=== PATIENT | female | born 1940 | race Caucasian/White ===

== ENCOUNTER 2024-08-19 10:38 | Emergency (ER) | payer MEDICARE, OTHER, SELFPAY ==
--- NOTE | ~2024-08-19 | CT_ITS ---
EXAMINATION: CT facial bones wo con DATE: 08/19/2024 12:34 INDICATION: Right head injury. TECHNIQUE: Computed tomography (CT) of the facial bones and maxillofacial region was performed withou t intravenous contrast. Automated exposure control and iterative reconstruction technique were employ ed. The dose-length product was 307.69 mGy-cm. COMPARISON: None. FINDINGS: There are likely changes of ocular lens replacement surgeries. There is rightward deviation of the nasal septum. No fracture. The paranasal sinuses are clear. There is a trace left mastoid eff usion. There is severe cervical spondylosis. IMPRESSION: 1. No fracture. Reviewed, dictated and finalized at location A. IMPRESSION: 1. No fracture.
--- NOTE | ~2024-08-19 | CT_ITS ---
EXAMINATION: CT brain wo con DATE: 08/19/2024 12:33 INDICATION: Head injury. TECHNIQUE: Computed tomography (CT) of the head was performed without intravenous contrast. The mA wa s adjusted according to patient size. Iterative reconstruction technique was employed. The dose-lengt h product was 605.33 mGy-cm. COMPARISON: None FINDINGS: There are scattered areas of low attenuation in the cerebral white matter. There is no intr acranial hemorrhage, acute infarction, or abnormal intracranial mass lesion. The ventricles are william l in size. There are likely changes of ocular lens replacement surgeries. The paranasal sinuses are c lear. There is a trace left mastoid effusion. IMPRESSION: 1. Moderate nonspecific cerebral white matter disease, which likely represents chronic small vessel i schemic disease. Reviewed, dictated and finalized at location A. IMPRESSION: 1. Moderate nonspecific cerebral white matter disease, which likely represents chronic small vessel ischemic disease.
[2024-08-19 10:45] VITALS: BP 138/78; PULSE 80; RESP 16; TEMP 36.4; O2SAT 98
--- NOTE | 2024-08-19 11:11 | ED.GENADULT ---
HPI - General Adult General Chief complaint: Wound/Laceration Stated complaint: FALL Time Seen by Provider: 08/19/24 10:53 Source: patient Mode of arrival: ambulatory Limitations: no limitations History of Present Illness HPI narrative: this is a 82-year-old female who presents to the ED for chief complaint of a fall this morning. Reports she was in the driveway and got her foot caught up which caused her to fall. Reports laceration to the right eyebrow, skin tears to the bilateral elbows and skin tear to the left forearm. Denies LOC. Denies neck pain, any further sites of pain or injury. Related Data Allergies Allergy/AdvReac Type Severity Reaction Status Date / Time No Known Allergies Allergy Verified 08/19/24 11:15 Review of Systems Review of Systems: All systems as dictated in HPI Exam Narrative: GENERAL: Well-appearing, well-nourished, and in no acute distress. HEAD: Normocephalic, atraumatic. EYES: PERRLA and EOMI. ENT: Nares clear, no rhinorrhea or epistaxis. Mucous membranes moist. Oropharynx without tonsillar hypertrophy exudate or other lesions. NECK: Supple. No adenopathy or masses. CHEST: No respiratory distress. Clear to auscultation. No wheezes rales or rhonchi HEART: Regular rate and rhythm. No murmur heard. Normal peripheral pulses. ABDOMEN: Soft, nontender, nondistended, normal active bowel sounds. MSK: Normal range of motion. No edema. SKIN: 3 cm right eyebrow laceration with bleeding controlled. multiple skin tears noted to the bilateral forearms with bleeding controlled. NEURO: Alert and oriented x4. No focal deficits. PSYCH: Normal mood and affect. Course Vital Signs Vital signs: Vital Signs Temperature 97.5 F L 08/19/24 10:45 Pulse Rate 80 08/19/24 10:45 Respiratory Rate 16 08/19/24 10:45 Blood Pressure 138/78 08/19/24 10:45 Pulse Oximetry 98 08/19/24 10:45 Oxygen Delivery Room Air 08/19/24 10:45 Temperature 97.5 F L 08/19/24 10:45 Pulse Rate 80 08/19/24 10:45 Respiratory Rate 16 08/19/24 10:45 Blood Pressure 138/78 08/19/24 10:45 Pulse Oximetry 98 08/19/24 10:45 Oxygen Delivery Room Air 08/19/24 10:45 Procedures Laceration Laceration 1: Date: 08/19/24 Time: 13:28 Site: face Side (If applicable): right Size (cm): 3 Description: linear Depth: simple, single layer Local Anesthetic: lidocaine 1% Amount of anesthesia used (mL): 3 Pre-repair: wound explored, irrigated extensively and deep structures intact ====== Skin Level ====== Skin layer closed with: prolene Size (cm): 5-0 Number of sutures: 4 Technique: simple, interrupted ====== Subcutaneous Layer ====== ====== Muscle Layer ====== ====== Tendon Layer ====== Medical Decision Making MDM Narrative Medical decision making narrative: This is a 84-year-old female who presents to the ED with chief complaint of a fall this morning. She suffered lacerations to the right eyebrow and bilateral forearms. Vitals are normal. Neurologically fully intact. No other significant signs of trauma on exam. The eyebrow has a 3 cm laceration that was well cleansed and irrigated here. Closed primarily with sutures. The skin tears to the arms were irrigated and closed with Steri-Strips. Tetanus shot updated. Prophylactic antibiotics given. Laceration instructions given. CT imaging of the face and brain are negative for acute findings. Pt will be discharged in stable condition. Return precautions given and supportive measures discussed. Pt is understanding and agreeable with plan for discharge and follow-up with PCP. Vital Signs Vital Signs: Vital Signs Temperature 97.5 F L 08/19/24 10:45 Pulse Rate 80 08/19/24 10:45 Respiratory Rate 16 08/19/24 10:45 Blood Pressure 138/78 08/19/24 10:45 Pulse Oximetry 98 08/19/24 10:45 Oxygen Delivery
[2024-08-19] MEDS: TETANUS,DIPHTHERIA,AC PERTUSSIS ADULT (0.5 ML) BOOSTRIX IM (13:38)
== END 2024-08-19 13:48 | disposition home or self-care (01) ==
PROVIDERS: Emergency Provider Physician Assistant
DX: S01.111A Laceration without foreign body of right eyelid and periocular area, initial encounter (principal); S51.002A Unspecified open wound of left elbow, initial encounter; S51.001A Unspecified open wound of right elbow, initial encounter; S51.802A Unspecified open wound of left forearm, initial encounter; W19.XXXA Unspecified fall, initial encounter; Z23 Encounter for immunization
CPT/HCPCS: 12013; 70450; 70486; 90471; 90715; 99284